=== PATIENT | female | born 1950 | race Caucasian/White ===

== ENCOUNTER 2016-11-22 13:03 | Emergency (ER) | payer MEDICARE, BC ==
[2016-11-22 13:15] VITALS: PULSE 75; TEMP 97.9
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
--- NOTE | 2016-11-22 13:43 | XR ---
EXAMINATION TYPE: XR shoulder complete RT DATE OF EXAM ORDERED: 11/22/2016 1:40 PM HISTORY: Pain. COMPARISON: None. FINDINGS: There are mild hypertrophic changes present in the right AC joint. No fracture, dislocatio n or other acute osseous lesion is seen. IMPRESSION: 1. NO ACUTE OSSEOUS LESION. 2. DEGENERATIVE CHANGE, RIGHT AC JOINT.
--- NOTE | 2016-11-22 13:43 | XR ---
EXAMINATION TYPE: XR ankle complete LT DATE OF EXAM: 11/22/2016 1:40 PM COMPARISON: NONE HISTORY: Pain FINDINGS: Three views of the ankle demonstrate the ankle mortise to be intact and symmetric. The joint spaces are preserved. The osseous structures are intact. Diffuse osteopenia noted. Calcaneal spur noted. IMPRESSION: 1. No definite acute fracture or dislocation, if symptoms persist follow-up study in 7 to 10 days wou ld be suggested.
[2016-11-22 14:19] VITALS: BP 144/77; RESP 18
== END 2016-11-22 14:25 | disposition home or self-care (01) ==
LOC: EC 13:03
DX: S93.402A Sprain of unspecified ligament of left ankle, initial encounter (principal); S49.91XA Unspecified injury of right shoulder and upper arm, initial encounter; Z79.899 Other long term (current) drug therapy; W01.0XXA Fall on same level from slipping, tripping and stumbling without subsequent striking against object, initial encounter; Y92.009 Unspecified place in unspecified non-institutional (private) residence as the place of occurrence of the external cause
CPT/HCPCS: 99284